=== PATIENT | female | born 1960 | race Asian ===

== ENCOUNTER 2024-12-08 23:05 | Emergency (ER) | payer MEDICARE, OTHER, SELFPAY ==
[2024-12-08 23:08] VITALS: BP 145/81
[2024-12-08 23:42] VITALS: BMI 27.3
[2024-12-09 00:51] LABS: Hematocrit 39.9 % (37.0-47.0); Hemoglobin 13.9 g/dL (12.0-16.0); Mean Corp Hgb Conc. 34.8 g/dL (33.0-37.0); Mean Corpuscular Volume 88.9 fL (81.0-99.0); Nucleated Red Blood Cells % 0 %; Platelet Count 231 10^3/uL (130-400); Red Cell Dist. Width 12.1 % (11.5-14.5)
--- NOTE | 2024-12-09 01:16 | ED.GENMED ---
History of Present Illness
General
Chief Complaint: Abdominal Pain
Source: patient and spouse
Exam Limitations: none
Time Seen by Provider: 12/09/24 00:10
Nursing documentation reviewed up to this point in time: agreed with
History of Present Illness
History of Present Illness:
The patient is a 64-year-old female who presented with sudden onset abdominal pain of moderate severity, which began 2 hours prior to arrival. She described the pain as initially diffuse lower abdomen without radiation. The patient reported that
the intensity of the pain has now completely subsided. She experienced constipation initially, which began several days ago, and attempted relief at home with a suppository, resulting in passing small hard stools, followed by larger stools, and
finally diarrhea with blood tinging. The patient noted a history of diverticulitis diagnosed in 2016, following a hospitalization for a kidney infection; however, she states the current pain feels different from prior episodes of diverticulitis. She
has not been taking regular fiber supplements or stool softeners but has tried recent interventions due to changes in her medications resulting in decreased appetite and bowel movement frequency. She needed a Dulcolax suppository 3 days ago to
pass a bowel movement and then 2 days ago took several laxative tablets and then another Dulcolax suppository tonight. She denies back pain or flank pain. No dysuria and urgency and or hematuria. She denies fever and or chills.
Past History
Past History
ED Past Medical History: GERD, Hypothyroidism, Psychiatric (Anxiety, depression) and Other (1 episode of cecal diverticulitis 2016, 1 episode of pyelonephritis 2016)
ED Past Surgical History: Orthopedic (left shoulder cyst surgery)
Social History
Tobacco: Non-smoker
Alcohol: None
Drug: None
Personal:
Living: with family
Employment: Not employed
Family History
Family History: Other (Noncontributory)
Phy Exam
Physical Exam
Physical Exam:
GENERAL: 64-year-old woman appears her stated age, awake and alert, pleasant, appears in no acute distress. is accompanying.
EYE: anicteric
NECK: Supple, nontender, no meningismus, no significant adenopathy.
ENT: oral mucosa is moist. No rhinorrhea.
CARDIAC: Regular rate and rhythm. no murmur.
LUNGS: Clear breath sounds bilaterally, no acute respiratory distress, no wheezes/rales/rhonchi
ABDOMEN: Soft, nondistended, without focal tenderness, no r/g, no cvat. normoactive BS. No palpable masses.
NEUROLOGICAL: Alert and oriented x3, no focal neuro deficits. Gait is mccarthy and steady.
SKIN: Warm and dry, normal color, skin intact. No rash.
MUSCULOSKELETAL: No C/C/E. peripheral pulses are full and equal b/l. No palpable tenderness.
PSYCH: Normal and appropriate interaction.
Course
Orders/Labs/Results
Orders:
Orders
12/09/24 00:27
Urinalysis Reflex To Culture Urgent
Date Specimen was Collected: 12/09/24
Time Specimen was Collected: 03:24
12/09/24 00:45
Complete Blood Count/With Diff Urgent
Comprehensive Metabolic Panel Urgent
Lactic Acid Urgent
12/09/24 01:51
CT Abd/pelvis W Iv Cont Urgent
Comment:
Reason For Exam: acute lower abd pain, constip, now bloody diarrhea
0.9% Sodium Chloride 1000 ml [Nss] 2,000 ml IV BOLUS
12/09/24 03:55
Amoxicillin 875 mg/Clav 125 mg [Augmentin 875 mg/125 mg] 1 tablet PO NOW STA
MetroNIDAZOLE [Flagyl] 500 mg PO NOW STA
Abnormal Lab Results
12/09/24
00:45
WBC 14.2 H 10^3/uL
(4.8-10.8)
Abs Immat Gran (auto) 0.1 H 10^3/uL
(0-0.05)
Absolute Neuts (auto) 13.0 H 10^3/uL
(1.4-6.5)
Absolute Lymphs (auto) 0.9 L 10^3/uL
(1.2-3.4)
Neutrophils % 91.5 H %
(42.2-75.2)
Lymphocytes % 6.4 L %
(20.5-51.1)
Monocytes % 1.1 L %
(1.7-9.3)
Chloride 109 H mmol/L
(98-107)
Glucose 163 H mg/dl
(70-99)
Lactic Acid 3.3 H mmol/L
(0.7-2.0)
12/09/24 00:45
12/09/24 00:45
Vital Signs
Initial and Last Documented VS:
Initial Vital Signs
Pulse Resp BP Pulse Ox
62 18 145/81 98
12/08/24 23:08 12/08/24 23:08 12/08/24 23:08 12/08/24 23:08
Last Documented Vital Signs
Pulse Resp BP Pulse Ox
62 22 145/81 98
12/08/24 23:08 12/09/24 00:00 12/08/24 23:08 12/09/24 01:24
MDM/Problems Addressed
Differential Diagnosis Includes:
The Differential Diagnosis includes, in no particular order and is not limited to:
1. Diverticulitis
2. Colonic obstruction
3. Gastroenteritis
4. Irritable bowel syndrome
5. Infectious colitis
6. Inflammatory bowel disease
7. Chronic constipation
8. Kidney stones
9. Gastrointestinal bleeding
10. Celiac disease
MDM/Problems Addressed:
Acute: Abdominal pain, Constipation, Diarrhea with blood tinging.
Chronic: History of diverticulitis, History of kidney infection. History of anxiety/depression. Recent change in psychiatric medications which patient and suspect are causing constipation.
Chronic conditions affecting care:
Patient is pain-free and comfortable now and abdomen is completely nontender.
Will continue to observe and will check labs including CBC, complete metabolic panel, urinalysis and lactic acid.
Will consider imaging depending on clinical course and laboratory studies.
Chronic conditions affecting care: Psychiatric illness, Kidney disease (Prior history of pyelonephritis. No prior history of kidney stones) and Other (1 previous episode of diverticulitis)
*Radiology
Radiology exam reviewed: radiology read reviewed
*Pulse Oximetry
SaO2: 98
Oxygen Mode of Delivery: Room air
Patient hypoxic: no
*Critical Care Note
Total Time (30-74mins, 75-104mins- exclusive of procedures): Not Applicable
Update Note
Update Note:
01:50
Patient has had return of intermittent mild left lower quadrant crampy pain. She has passed a few more loose stools initially with scant blood but most recent bowel movement noted to have moderate bloody mucoid mixture approximately 100 cc. She
remains hemodynamically stable. Abdomen is soft with only minimal tenderness left lower quadrant. Labs notable for elevated white blood cell count of 14.2. Chemistries are unremarkable. Lactic acid mildly elevated at 3.3.
Will initiate IV fluids and plan for CT abdomen pelvis with IV contrast.
Patient reports 1 small liquid stool with scant blood. She remains afebrile. Intermittent mild cramping left lower quadrant but overall improving. Abdomen is soft without appreciable tenderness.
CAT scan shows small and large bowel decompressed. There is mild wall thickening and inflammation of the descending and sigmoid colon concerning for mild colitis. No pneumatosis nor free air.
There is also note of multiple fibroids in the uterus and potential multiple cysts in the ovaries bilaterally. Patient states she is aware of uterine fibroids. She currently does not follow with [facility] nor GI.
Due to concern for infectious colitis we will initiate a course of Augmentin, Flagyl.
Recommend limiting diet to clear liquids today, slowly advance to soft bland foods tomorrow as tolerated.
Recommend initiation of a fiber supplement within the next 2 to 3 days and continue this on a daily basis.
Will refer to GI for follow-up as well as [facility] for follow-up regarding potential ovarian cysts and uterine fibroids.
Follow-up with PCP as well.
Return precautions discussed.
ED Attending Note
-
Portions of this chart may have been created with voice recognition software.� Occasional wrong word or��sound alike� substitutions may have occurred due to the inherent limitations of voice recognition software.
Discharge Plan
Departure
Patient Disposition: Home (Routine Discharge)
Date of Disposition: 12/09/24
Time of Disposition: 04:01
Patient with high blood pressure during this ER visit?: No
Condition: Good
Discharge Problem:
Acute constipation, Acute colitis
Instructions: Clear Liquid Diet, Bloody stools in adults, Colitis (DC)
Prescriptions:
New
amoxicillin-pot clavulanate 875-125 mg tablet
1 tab PO BID Qty: 14 0RF
metronidazole 500 mg tablet
500 mg PO TID Qty: 20 0RF
Discontinued
metronidazole 500 MG tablet
500 mg PO TID Qty: 21 0RF
levofloxacin 500 MG tablet
500 mg PO DAILY Qty: 7 0RF
No Action
levothyroxine 50 MCG tablet
50 mcg PO DAILY
lorazepam 0.5 MG tablet
0.5 mg PO Q8HPRN PRN (Reason: anxiety) Qty: 24 0RF
risperidone 0.5 MG tablet
0.75 mg PO DAILY
bupropion HCl 300 MG tablet extended release 24 hr
300 mg PO DAILY
nortriptyline 50 MG capsule
50 mg PO HS
bupropion HCl 150 MG tablet extended release 24 hr
150 mg PO Daily
Referrals:
[facility] [Outside] - Call in 1-3 days for appt
Gail Reece DO [Active, Gynecology] - Call in 1-3 days for appt
Mila Garcia MD [Active, Gastroenterology] - Call in 1-3 days for appt
UNKNOWN - PT DOES,NOT KNOW [Family Provider]
Activity Restrictions/Additional Instructions:
Limit your diet to only clear liquids today then beginning tomorrow, Friday, you may advance to soft bland foods.
Beginning Friday I want you to start a fiber supplement such as Benefiber or Metamucil and take this once daily.
Trying to stay well-hydrated on a daily basis.
Follow-up with your primary care physician/family practice residency clinic for recheck. You have also been referred to gastroenterology regarding abdominal pain, constipation, bloody stools. You had been referred to [facility] for follow-up of fibroid
uterus and bilateral ovarian cysts.
If the bloody stools seem to worsen or if accompanied with a high fever, severe pain, prompt return to the ER for further evaluation.
Interventions
Interventions:
*Risk Screen - Suicide Last Done: 12/08/24 23:08
*General Assessment Last Done: 12/08/24 23:42
*Neglect/Abuse Screening Last Done: 12/08/24 23:08
*ED- Fall Risk Assessment Last Done: 12/08/24 23:42
*ED COVID-19 Vaccine History Last Done: 12/08/24 23:42
BC-[id number] Assessment Last Done: 12/08/24 23:45
Discharge Date and Time
Print Language: HONG KONG[place]
[2024-12-09 01:18] LABS: ALT (SGPT) 17 U/L (0-35); AST (SGOT) 23 U/L (14-36); Albumin 4.6 g/dl (3.5-5.0); Alkaline Phosphatase 97 U/L (38-126); Blood Urea Nitrogen 16 mg/dl (7-17); Calcium 9.3 mg/dl (8.4-10.2); Carbon Dioxide 22 mmol/L (22-30); Chloride 109 mmol/L (98-107); Estimated Creatinine Clearance 62 ml/min; Glucose 163 mg/dl (70-99); Potassium 3.5 mmol/L (3.5-5.1); Sodium 141 mmol/L (135-145); Total Protein 7.1 g/dl (6.3-8.2); eGFR > 60.00
[2024-12-09] MEDS: NSS 2000 IV (01:59)
[2024-12-09] MEDS: AUGMENTIN 875 MG/125 MG 1 TABLET PO (04:14)
[2024-12-09] MEDS: FLAGYL 500 MG PO (04:15)
[2024-12-09 04:18] LABS: Urine Character Clear (Clear)
[2024-12-09 04:34] VITALS: BP 120/64
== END 2024-12-09 04:36 | disposition home or self-care (01) ==
LOC: EMR 23:05
PROVIDERS: EMERGENCY PHYSICIAN Emergency Medicine
DX: K52.9 Noninfective gastroenteritis and colitis, unspecified (principal); K59.09 Other constipation; E03.9 Hypothyroidism, unspecified
CPT/HCPCS: 99284; 96360; 74177; 80053; 81003; 83605; 85025; Q9967

== ENCOUNTER → 2025-02-03 08:28 | Outpatient (REF) | payer OTHER, SELFPAY | LOC: RAD 08:28 | DX: Z78.0 Asymptomatic menopausal state (principal) | CPT/HCPCS: 77080 ==

== ENCOUNTER → 2025-03-23 12:56 | Outpatient (REF) | payer OTHER, SELFPAY | LOC: WDC 12:56 | DX: Z12.31 Encounter for screening mammogram for malignant neoplasm of breast (principal) | CPT/HCPCS: 77063; 77067 ==